=== PATIENT | male | born 1970 | race African-American/Black ===

== ENCOUNTER 2016-06-27 07:15 | Emergency (ER) | payer MEDICAID, OTHER ==
[~2016-06-27] VITALS: Ht 195.6 cm; Wt 89.8 kg
[2016-06-27 07:55] LABS: BASOPHILS % (AUTO) 0.8 % (0.0-2.0); DIFF TOTAL % 100 %; EOSINOPHILS # (AUTO) 0.1 /CMM (0.0-0.7); HEMATOCRIT 38 % (39-51); HEMOGLOBIN 12.8 g/dL (13.5-17.5); LYMPHOCYTES # (AUTO) 1.2 /CMM (0.8-4.8); MEAN CORPUSCULAR HEMOGLOBIN 32 PG (26.0-33.0); MEAN CORPUSCULAR HGB CONC 34 g/dl (31.0-36.0); MEAN CORPUSCULAR VOLUME 96 fL (80-96); MONOCYTES # (AUTO) 0.5 /CMM (0.1-1.30); MONOCYTES % (AUTO) 8.8 % (2.0-12.0); NEUTROPHILS # (AUTO) 3.4 /CMM (1.8-8.9); NEUTROPHILS % (AUTO) 65.4 % (43.0-81.0); PLATELET COUNT (AUTO) 227 /CMM (150-450); RED BLOOD CELL COUNT(AUTO) 3.98 MIL/uL (4.5-6.0); WHITE BLOOD COUNT (AUTO) 5.2 K/uL (4.3-11.0)
[2016-06-27 08:01] LABS: ADD UA MICROSCOPIC NO; KETONES,URINE NEGATIVE (NEGATIVE); LEUKOCYTE ESTERASE ,URINE NEGATIVE (NEGATIVE)
[2016-06-27 08:08] LABS: ANION GAP 13 (5-14); CALCIUM, SERUM 9.1 mg/dL (8.5-10.1); CARBON DIOXIDE 27 mmol/L (21-32); CHLORIDE 107 mmol/L (98-107); CREATININE 0.9 mg/dL (0.6-1.3); GFR 110 mL/min (>60); GLUCOSE 81 mg/dL (74-106); SODIUM SERUM 143 mmol/L (136-145); UREA NITROGEN, BLOOD 12 mg/dL (7-18)
[2016-06-27 08:15] LABS: ALANINE AMINOTRANSFERASE 37 U/L (12-78); ALBUMIN 4.2 g/dL (3.4-5.0); ASPARTATE AMINOTRANSFERASE 26 U/L (15-37); BILIRUBIN,DIRECT 0.1 mg/dL (0.0-0.2); BILIRUBIN,TOTAL 0.6 mg/dL (0.2-1.0); INDIRECT BILIRUBIN 0.5 mg/dL (0.0-1.1); TOTAL PROTEIN, SERUM 7.8 g/dL (6.4-8.2)
[2016-06-27 08:16] LABS: ACETAMINOPHEN 0 ug/ml (10-30)
[2016-06-27 08:24] LABS: CANNABINOID, URINE POSITIVE (NEGATIVE); PHENCYCLIDINE SCREEN,URINE NEGATIVE (NEGATIVE)
[2016-06-27 10:12] VITALS: BP 132/84
== END 2016-06-27 10:13 | disposition home or self-care (01) ==
LOC: ER 07:19
DX: R45.851 Suicidal ideations (principal); D64.9 Anemia, unspecified; F32.9 Major depressive disorder, single episode, unspecified; F17.200 Nicotine dependence, unspecified, uncomplicated
CPT/HCPCS: 36415; 80048; 80076; 80305; 81001; 85025; 99284; A4606; G0480 ×2; Z7610; 81000-TC; G6039-TC

== ENCOUNTER 2017-08-25 07:27 | Emergency (ER) | payer OTHER ==
[~2017-08-25] VITALS: Ht 195.6 cm; Wt 90.7 kg
[2017-08-25 07:30] VITALS: BP 148/84
--- NOTE | 2017-08-25 07:32 | NUR ---
AAOX3 BBRA FROM STREET FOR MEDICAL CLEARANCE. RR IS EVEN AND UNLABORED WITH NAD NOTED. SKIN IS WARM AND DRY. DR ARMAS AT BS FOR EVAL.
[2017-08-25 08:09] LABS: BASOPHILS % (AUTO) 0.8 % (0.0-2.0); EOSINOPHILS % (AUTO) 0.9 % (0.0-6.0); HEMATOCRIT 36 % (39-51); HEMOGLOBIN 12.2 g/dL (13.5-17.5); LYMPHOCYTES % (AUTO) 22.9 % (20.0-44.0); MEAN CORPUSCULAR HGB CONC 34 g/dl (31.0-36.0); MEAN CORPUSCULAR VOLUME 92 fL (80-96); MONOCYTES # (AUTO) 0.4 /CMM (0.1-1.30); MONOCYTES % (AUTO) 8.5 % (2.0-12.0); NEUTROPHILS # (AUTO) 2.8 /CMM (1.8-8.9); NEUTROPHILS % (AUTO) 66.9 % (43.0-81.0); PLATELET COUNT (AUTO) 303 /CMM (150-450); RDW COEFFICIENT OF VARIATION 14.8 (11.5-15.0); RED BLOOD CELL COUNT(AUTO) 3.91 MIL/uL (4.5-6.0); WHITE BLOOD COUNT (AUTO) 4.2 K/uL (4.3-11.0)
--- NOTE | 2017-08-25 08:15 | NUR ---
Patient eloped from facility. ER MD notified.
[2017-08-25 08:22] LABS: CALCIUM, SERUM 9.3 mg/dL (8.5-10.1); CARBON DIOXIDE 28 mmol/L (21-32); CHLORIDE 102 mmol/L (98-107); GLUCOSE 99 mg/dL (74-106); POTASSIUM 3.7 mmol/L (3.5-5.1); SODIUM SERUM 140 mmol/L (136-145); UREA NITROGEN, BLOOD 11 mg/dL (7-18)
[2017-08-25 08:29] LABS: ALANINE AMINOTRANSFERASE 28 U/L (12-78); ALBUMIN 3.7 g/dL (3.4-5.0); ALCOHOL, BLOOD < 3 mg/dL (0-0); ALKALINE PHOSPHATASE 54 U/L (46-116); ASPARTATE AMINOTRANSFERASE 20 U/L (15-37); BILIRUBIN,DIRECT 0.1 mg/dL (0.0-0.2); BILIRUBIN,TOTAL 0.2 mg/dL (0.2-1.0); TOTAL PROTEIN, SERUM 7.6 g/dL (6.4-8.2)
[2017-08-25 08:30] LABS: ACETAMINOPHEN 0 ug/ml (10-30); SALICYLATE 1.3 mg/dL (2.8-20.0)
== END 2017-08-25 08:15 | disposition left against medical advice (07) ==
LOC: ER 07:29
DX: F32.9 Major depressive disorder, single episode, unspecified (principal); F17.200 Nicotine dependence, unspecified, uncomplicated
CPT/HCPCS: 36415; 80048-TC; 80076-TC; 85025-TC; A4606; G0480; Z7610

== ENCOUNTER 2018-01-17 10:39 | Emergency (ER) | payer MEDICAID, OTHER ==
[~2018-01-17] VITALS: Ht 195.6 cm; Wt 87.1 kg
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
--- NOTE | 2018-01-17 10:49 | NUR ---
DR BALLARD AT BEDSIDE FOR EVAL.
--- NOTE | 2018-01-17 10:59 | NUR ---
POULTRY PROCESSING SUPERVISOR AT BEDSIDE FOR BLOOD DRAW. URINE SPECIMEN COLLECTED SENT TO LAB.
[2018-01-17 11:09] LABS: APPEARANCE,URINE Clear (CLEAR); BILIRUBIN,URINE Negative (NEGATIVE); BLOOD, URINE Negative Ery/uL (NEGATIVE); COLOR,URINE Yellow (YELLOW); KETONES,URINE Negative (NEGATIVE); LEUKOCYTE ESTERASE ,URINE Negative (NEGATIVE); NITRITE, URINE Negative (NEGATIVE); PH,URINE 5.5 (5.0-8.0); PROTEIN,URINE Negative (NEGATIVE); UGLUCOSE Negative (NEGATIVE); UROBILINOGEN,URINE 0.2 EU/dL (0.2)
[2018-01-17 11:10] LABS: BASOPHILS % (AUTO) 0.5 % (0.0-2.0); EOSINOPHILS % (AUTO) 0.9 % (0.0-6.0); HEMATOCRIT 42 % (39-51); HEMOGLOBIN 13.9 g/dL (13.5-17.5); LYMPHOCYTES # (AUTO) 1.6 /CMM (0.8-4.8); LYMPHOCYTES % (AUTO) 34.2 % (20.0-44.0); MEAN CORPUSCULAR HGB CONC 33 g/dl (31.0-36.0); MEAN CORPUSCULAR VOLUME 93 fL (80-96); MONOCYTES # (AUTO) 0.5 /CMM (0.1-1.30); MONOCYTES % (AUTO) 10.7 % (2.0-12.0); NEUTROPHILS # (AUTO) 2.5 /CMM (1.8-8.9); NEUTROPHILS % (AUTO) 53.7 % (43.0-81.0); PLATELET COUNT (AUTO) 294 /CMM (150-450); RDW COEFFICIENT OF VARIATION 13.3 (11.5-15.0); RED BLOOD CELL COUNT(AUTO) 4.51 MIL/uL (4.5-6.0); WHITE BLOOD COUNT (AUTO) 4.6 K/uL (4.3-11.0)
[2018-01-17 11:20] LABS: CALCIUM, SERUM 9.2 mg/dL (8.5-10.1); CARBON DIOXIDE 32 mmol/L (21-32); CHLORIDE 102 mmol/L (98-107); GLUCOSE 77 mg/dL (74-106); POTASSIUM 3.6 mmol/L (3.5-5.1); SODIUM SERUM 138 mmol/L (136-145); UREA NITROGEN, BLOOD 14 mg/dL (7-18)
[2018-01-17 11:25] LABS: ALANINE AMINOTRANSFERASE 23 U/L (12-78); ALBUMIN 4.3 g/dL (3.4-5.0); ALKALINE PHOSPHATASE 69 U/L (46-116); ASPARTATE AMINOTRANSFERASE 29 U/L (15-37); BILIRUBIN,DIRECT 0.2 mg/dL (0.0-0.2)
[2018-01-17 11:27] LABS: ACETAMINOPHEN < 2 ug/ml (10-30); ALCOHOL, BLOOD < 3 mg/dL (0-0); SALICYLATE 1.5 mg/dL (2.8-20.0)
--- NOTE | 2018-01-17 12:05 | NUR ---
FOOD TRAY ORDERED
[2018-01-17] MEDS ORDERED: OLANZAPINE 10 MG VIAL IM ONE (13:30)
[2018-01-17] MEDS ORDERED: HALOPERIDOL 5 MG TABLET ONE (13:38)
[2018-01-17] MEDS ORDERED: HALOPERIDOL 1 MG TABLET PO ONE (14:00)
--- NOTE | 2018-01-17 17:31 | NUR ---
PT STATES FEELING MUCH BETTER AFTER PO HALDOL. NOW DENIES SI. NOT ON A [address] JONES MADE AWARE OF PT'S PLAN AND STATES GOOD TO GO IF HE WISHES TO. PT AMBULATORY W/ STEADY GAIT. D/C HOME IN STABLE CONDITION.
[2018-01-17 17:35] VITALS: BP 121/82
== END 2018-01-17 17:36 | disposition home or self-care (01) ==
LOC: ER 10:40
DX: R45.851 Suicidal ideations (principal); F32.9 Major depressive disorder, single episode, unspecified; F10.10 Alcohol abuse, uncomplicated; F17.200 Nicotine dependence, unspecified, uncomplicated; F15.10 Other stimulant abuse, uncomplicated; Y90.0 Blood alcohol level of less than 20 mg/100 ml
CPT/HCPCS: 36415; 80048; 80076; 80305; 80329; 81001; 85025; 99291; A4606; G0480 ×2; J7030; Z7610; 81000-TC

== ENCOUNTER 2018-12-05 23:49 | Emergency (ER) | payer MEDICAID, OTHER ==
[~2018-12-05] VITALS: Ht 195.6 cm; Wt 83.9 kg
[2018-12-06] MEDS ORDERED: KETOROLAC TROMETHAMINE INJ 60 MG/2 ML VIAL IM ONE
[2018-12-06] MEDS ORDERED: KETOROLAC TROMETHAMINE INJ 30 MG/ML VIAL ONE (00:06)
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
[2018-12-06] MEDS ORDERED: IBUPROFEN 600 MG TABLET PO ONE ×2 (00:17→00:30)
[2018-12-06 00:29] LABS: APPEARANCE,URINE Clear (CLEAR); BILIRUBIN,URINE Negative (NEGATIVE); BLOOD, URINE Negative Ery/uL (NEGATIVE); COLOR,URINE Yellow (YELLOW); KETONES,URINE Negative (NEGATIVE); LEUKOCYTE ESTERASE ,URINE Negative (NEGATIVE); NITRITE, URINE Negative (NEGATIVE); PROTEIN,URINE Negative (NEGATIVE); UGLUCOSE Negative (NEGATIVE)
--- NOTE | 2018-12-06 00:34 | NUR ---
BLOOD DRAWN AND URINE SENT TO LAB
[2018-12-06 00:35] LABS: BASOPHILS % (AUTO) 0.6 % (0.0-2.0); EOSINOPHILS % (AUTO) 1.1 % (0.0-6.0); HEMATOCRIT 41 % (39-51); HEMOGLOBIN 13.9 g/dL (13.5-17.5); LYMPHOCYTES # (AUTO) 1.5 /CMM (0.8-4.8); LYMPHOCYTES % (AUTO) 36.2 % (20.0-44.0); MEAN CORPUSCULAR HGB CONC 34 g/dl (31.0-36.0); MEAN CORPUSCULAR VOLUME 95 fL (80-96); MONOCYTES # (AUTO) 0.6 /CMM (0.1-1.30); MONOCYTES % (AUTO) 14.9 % (2.0-12.0); NEUTROPHILS % (AUTO) 47.2 % (43.0-81.0); PLATELET COUNT (AUTO) 266 /CMM (150-450); RED BLOOD CELL COUNT(AUTO) 4.26 MIL/uL (4.5-6.0); WHITE BLOOD COUNT (AUTO) 4.2 K/uL (4.3-11.0)
[2018-12-06 00:44] LABS: CALCIUM, SERUM 8.7 mg/dL (8.5-10.1); CARBON DIOXIDE 28 mmol/L (21-32); CHLORIDE 101 mmol/L (98-107); GLUCOSE 95 mg/dL (74-106); POTASSIUM 4.2 mmol/L (3.5-5.1); SODIUM SERUM 139 mmol/L (136-145); UREA NITROGEN, BLOOD 18 mg/dL (7-18)
[2018-12-06 00:50] LABS: ALANINE AMINOTRANSFERASE 27 U/L (12-78); ALCOHOL, BLOOD < 3 mg/dL (0-0); ALKALINE PHOSPHATASE 63 U/L (46-116); ASPARTATE AMINOTRANSFERASE 37 U/L (15-37); BILIRUBIN,DIRECT 0.2 mg/dL (0.0-0.2); BILIRUBIN,TOTAL 0.7 mg/dL (0.2-1.0); TOTAL PROTEIN, SERUM 7.5 g/dL (6.4-8.2)
[2018-12-06 00:54] LABS: BACTERIA,URINE Few /HPF (None Seen)
[2018-12-06 00:55] LABS: SALICYLATE 0.7 mg/dL (2.8-20.0)
[2018-12-06 00:55] LABS: SQUAMOUS EPITHELIAL CELL,UR Few /HPF (None Seen)
[2018-12-06 00:56] LABS: ACETAMINOPHEN 0 ug/ml (10-30)
--- NOTE | 2018-12-06 01:12 | NUR ---
PER INTAKE AT [facility], NO BED AVAILABLE AT ALL LOCATIONS UNTIL MORNING
--- NOTE | 2018-12-06 01:14 | NUR ---
PT PROVIDED WITH FOOD
--- NOTE | 2018-12-06 04:36 | NUR ---
PT IN BED SLEEPING. NAD NOTED.
--- NOTE | 2018-12-06 06:08 | NUR ---
PER INTAKE AT [facility], NO BED AVAILABLE UNTIL AFTER 0800. WILL FAX OVER CLINICALS PENDING ADMISSION
--- NOTE | 2018-12-06 07:13 | NUR ---
PT ENDORSED TO [facility] PEREZ FOR POOL. PT IN BED SLEEPING
--- NOTE | 2018-12-06 07:20 | NUR ---
RECVD REPORT FROM [facility]. PATIENT REMAINS STABLE VSS ARE WNL, NO DISTRESS NOTED.
--- NOTE | 2018-12-06 07:40 | NUR ---
BREAKFAST PROVIDED FOR PATIENT
--- NOTE | 2018-12-06 11:34 | NUR ---
[facility] ETA 1235 CONFIRMATION #[id number]
--- NOTE | 2018-12-06 12:30 | NUR ---
[facility] AT [facility] TO TAKE PATIENT TO OUTSIDE FACILITY FOR POOL JASMIN LANDERS
[2018-12-06 12:38] VITALS: BP 105/66
--- NOTE | 2018-12-06 12:38 | NUR ---
Patient discharged to home in stable condition. Written and verbal after care instructions given. Patient verbalizes understanding of instruction.
== END 2018-12-06 12:39 ==
LOC: ER 23:53
DX: R45.851 Suicidal ideations (principal); M25.512 Pain in left shoulder; F17.200 Nicotine dependence, unspecified, uncomplicated; V19.88XA Pedal cyclist (driver) (passenger) injured in other specified transport accidents, initial encounter; Y93.89 Activity, other specified; Y92.89 Other specified places as the place of occurrence of the external cause; Y99.8 Other external cause status
CPT/HCPCS: 36415; 73030; 80048; 80076; 80305; 80307; 80329; 81001; 85025; 87086; 99285; G0480; 81000-TC; J1885

== ENCOUNTER 2018-12-26 00:58 | Emergency (ER) | payer OTHER ==
[~2018-12-26] VITALS: Ht 195.6 cm; Wt 75.3 kg
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
--- NOTE | 2018-12-26 01:20 | NUR ---
Pt sleeping in rmarvin. No immediate signs of distress noted. Pt vital signs stable. WIll cont to monitor pt.
[2018-12-26 01:29] LABS: BASOPHILS # (AUTO) 0.2 /CMM (0.0-0.2); BASOPHILS % (AUTO) 3.8 % (0.0-2.0); HEMATOCRIT 39 % (39-51); HEMOGLOBIN 13.2 g/dL (13.5-17.5); LYMPHOCYTES # (AUTO) 1.4 /CMM (0.8-4.8); LYMPHOCYTES % (AUTO) 32.1 % (20.0-44.0); MEAN CORPUSCULAR HGB CONC 34 g/dl (31.0-36.0); MEAN CORPUSCULAR VOLUME 96 fL (80-96); MONOCYTES # (AUTO) 0.5 /CMM (0.1-1.30); MONOCYTES % (AUTO) 11.4 % (2.0-12.0); NEUTROPHILS # (AUTO) 2.2 /CMM (1.8-8.9); NEUTROPHILS % (AUTO) 49.7 % (43.0-81.0); PLATELET COUNT (AUTO) 259 /CMM (150-450); RED BLOOD CELL COUNT(AUTO) 4.04 MIL/uL (4.5-6.0); WHITE BLOOD COUNT (AUTO) 4.4 K/uL (4.3-11.0)
[2018-12-26 01:31] LABS: APPEARANCE,URINE Clear (CLEAR); BILIRUBIN,URINE Negative (NEGATIVE); BLOOD, URINE Negative Ery/uL (NEGATIVE); COLOR,URINE Yellow (YELLOW); KETONES,URINE Negative (NEGATIVE); LEUKOCYTE ESTERASE ,URINE Negative (NEGATIVE); NITRITE, URINE Negative (NEGATIVE); PH,URINE 5.5 (5.0-8.0); PROTEIN,URINE Negative (NEGATIVE); UGLUCOSE Negative (NEGATIVE); UROBILINOGEN,URINE 0.2 EU/dL (0.2)
[2018-12-26 01:40] LABS: CALCIUM, SERUM 8.7 mg/dL (8.5-10.1); CARBON DIOXIDE 28 mmol/L (21-32); CHLORIDE 101 mmol/L (98-107); CREATININE 1.1 mg/dL (0.6-1.3); GLUCOSE 97 mg/dL (74-106); POTASSIUM 3.8 mmol/L (3.5-5.1); SODIUM SERUM 138 mmol/L (136-145); UREA NITROGEN, BLOOD 18 mg/dL (7-18)
[2018-12-26 01:47] LABS: ALANINE AMINOTRANSFERASE 20 U/L (12-78); ALCOHOL, BLOOD < 3 mg/dL (0-0); ALKALINE PHOSPHATASE 57 U/L (46-116); ASPARTATE AMINOTRANSFERASE 32 U/L (15-37); BILIRUBIN,DIRECT 0.2 mg/dL (0.0-0.2); BILIRUBIN,TOTAL 0.5 mg/dL (0.2-1.0); TOTAL PROTEIN, SERUM 7.4 g/dL (6.4-8.2)
[2018-12-26 01:57] LABS: ACETAMINOPHEN 0 ug/ml (10-30); SALICYLATE 1.5 mg/dL (2.8-20.0)
--- NOTE | 2018-12-26 08:44 | NUR ---
MEDICAL DOCTOR NOTIFIED, ETA 1 HOUR.
--- NOTE | 2018-12-26 09:52 | NUR ---
PT AWAKE ON BED, FOOD TRAY PROVIDED, V/S STABLE, KEPT RESTED AND COMFORTABLE, WILL CONTINUE TO MONITOR.
--- NOTE | 2018-12-26 12:17 | NUR ---
TRANSFER INFO: PT WILL GO TO [facility], ACCEPTED BY DR SHAH, RN FOR REPORT [phone] EXT [phone], AMBULANCE ETA TO FOLLOW
--- NOTE | 2018-12-26 12:38 | NUR ---
[facility] ETA 1345 HOURS CONFIRMATION #[id number]
--- NOTE | 2018-12-26 12:41 | NUR ---
PLACED CALL TO [facility] ([phone]) AND GAVE REPORT TO LEON VALVERDE
--- NOTE | 2018-12-26 12:56 | NUR ---
FOOD TRAY PROVIDED
--- NOTE | 2018-12-26 14:17 | NUR ---
[facility] UPDATED ETA 1513
--- NOTE | 2018-12-26 15:39 | NUR ---
[id number], [facility] UPDATED ETA 1615
[2018-12-26 16:54] VITALS: BP 132/75
--- NOTE | 2018-12-26 17:58 | NUR ---
PATIENT TO TRANSFER TO [facility]. TRANSFER INFORMATION AND EDUCATION PROVIDED TO PATIENT AND VERBALIZED UNDERSTANDING. PATIENT LEFT UNIT VIA AMBULANCE TRANSPORTATION IN STABLE CONDITION. NO ACUTE DISTRESS. NO C/O PAIN OR DISCOMFORT. NO IV ON PATIENT. NO REPORT OF MISSING INVENTORY. NO NEW SKIN BREAKDOWN NOTED ON DISCHARGE. MD AWARE
== END 2018-12-26 18:05 ==
LOC: ER 01:01
DX: R45.851 Suicidal ideations (principal); F17.200 Nicotine dependence, unspecified, uncomplicated
CPT/HCPCS: 36415; 80048; 80076; 80305; 80307; 80329; 81001; 85025; 99285; G0480; 81000-TC

== ENCOUNTER 2019-05-22 00:32 | Emergency (ER) | payer OTHER ==
[~2019-05-22] VITALS: Ht 198.1 cm; Wt 83.9 kg
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
[2019-05-22 01:48] LABS: BASOPHILS # (AUTO) 0.1 /CMM (0.0-0.2); BASOPHILS % (AUTO) 0.6 % (0.0-2.0); EOSINOPHILS % (AUTO) 0.3 % (0.0-6.0); HEMATOCRIT 35 % (39-51); HEMOGLOBIN 11.6 g/dL (13.5-17.5); LYMPHOCYTES # (AUTO) 0.6 /CMM (0.8-4.8); LYMPHOCYTES % (AUTO) 7.1 % (20.0-44.0); MEAN CORPUSCULAR HGB CONC 34 g/dl (31.0-36.0); MEAN CORPUSCULAR VOLUME 97 fL (80-96); MONOCYTES # (AUTO) 0.5 /CMM (0.1-1.30); MONOCYTES % (AUTO) 5.5 % (2.0-12.0); NEUTROPHILS # (AUTO) 7.8 /CMM (1.8-8.9); NEUTROPHILS % (AUTO) 86.5 % (43.0-81.0); PLATELET COUNT (AUTO) 255 /CMM (150-450); RED BLOOD CELL COUNT(AUTO) 3.56 MIL/uL (4.5-6.0)
[2019-05-22 01:51] LABS: APPEARANCE,URINE Clear (CLEAR); BILIRUBIN,URINE Negative (NEGATIVE); BLOOD, URINE Negative Ery/uL (NEGATIVE); COLOR,URINE Yellow (YELLOW); KETONES,URINE Negative (NEGATIVE); LEUKOCYTE ESTERASE ,URINE Negative (NEGATIVE); NITRITE, URINE Negative (NEGATIVE); PROTEIN,URINE 30 mg/dl (NEGATIVE); UGLUCOSE Negative (NEGATIVE)
--- NOTE | 2019-05-22 01:51 | NUR ---
XRAY AT BEDSIDE
[2019-05-22 01:55] LABS: CALCIUM, SERUM 8.6 mg/dL (8.5-10.1); CARBON DIOXIDE 29 mmol/L (21-32); CHLORIDE 102 mmol/L (98-107); CREATININE 0.9 mg/dL (0.6-1.3); GLUCOSE 99 mg/dL (74-106); POTASSIUM 4.6 mmol/L (3.5-5.1); SODIUM SERUM 134 mmol/L (136-145); UREA NITROGEN, BLOOD 12 mg/dL (7-18)
[2019-05-22 02:01] LABS: ACETAMINOPHEN 0 ug/ml (10-30); ALANINE AMINOTRANSFERASE 28 U/L (12-78); ALBUMIN 3.5 g/dL (3.4-5.0); ALCOHOL, BLOOD < 3 mg/dL (0-0); ALKALINE PHOSPHATASE 72 U/L (46-116); ASPARTATE AMINOTRANSFERASE 43 U/L (15-37); BILIRUBIN,DIRECT 0.1 mg/dL (0.0-0.2); BILIRUBIN,TOTAL 0.5 mg/dL (0.2-1.0); SALICYLATE 1.2 mg/dL (2.8-20.0)
[2019-05-22 02:20] LABS: BACTERIA,URINE None seen /HPF (None Seen); MUCUS,URINE Moderate /LPF (None Seen); RBC,URINE 0-2 /HPF (0-2); SPERM,URINE Many /HPF (None Seen); SQUAMOUS EPITHELIAL CELL,UR Few /HPF (None Seen); WBC,URINE 0-2 /HPF (0-3)
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
--- NOTE | 2019-05-22 05:41 | NUR ---
PT STILL STATING HE IS SUICIDAL. CALLED MORALES JACOBS FOR EVALUATION
--- NOTE | 2019-05-22 08:03 | NUR ---
REYNALDO NIELSEN AT BEDSIDE FOR EVAL.
--- NOTE | 2019-05-22 09:12 | NUR ---
Patient discharged to home in stable condition. Written and verbal after care instructions given. Patient verbalizes understanding of instruction.
[2019-05-22 09:13] VITALS: BP 122/77
== END 2019-05-22 09:14 | disposition home or self-care (01) ==
LOC: ER 00:34
DX: R45.851 Suicidal ideations (principal); M25.561 Pain in right knee; F32.9 Major depressive disorder, single episode, unspecified; F17.200 Nicotine dependence, unspecified, uncomplicated; Z59.0 Homelessness
CPT/HCPCS: 29505; 36415; 73564; 80048; 80076; 80305; 80307; 80329; 81001; 85025; 85652; 86140; 99284; G0480; 81000-TC

== ENCOUNTER 2019-09-02 03:17 | Emergency (ER) | payer OTHER ==
[~2019-09-02] VITALS: Ht 198.1 cm; Wt 84.8 kg
[2019-09-02 04:52] LABS: APPEARANCE,URINE Clear (CLEAR); BILIRUBIN,URINE Negative (NEGATIVE); BLOOD, URINE Negative Ery/uL (NEGATIVE); COLOR,URINE Yellow (YELLOW); KETONES,URINE Negative (NEGATIVE); LEUKOCYTE ESTERASE ,URINE Negative (NEGATIVE); NITRITE, URINE Negative (NEGATIVE); PROTEIN,URINE Negative (NEGATIVE); UGLUCOSE Negative (NEGATIVE); UROBILINOGEN,URINE 0.2 EU/dL (0.2)
[2019-09-02 05:00] LABS: BASOPHILS # (AUTO) 0.1 /CMM (0.0-0.2); BASOPHILS % (AUTO) 1.3 % (0.0-2.0); EOSINOPHILS % (AUTO) 1.5 % (0.0-6.0); HEMATOCRIT 36 % (39-51); HEMOGLOBIN 12.2 g/dL (13.5-17.5); LYMPHOCYTES # (AUTO) 2.1 /CMM (0.8-4.8); MEAN CORPUSCULAR HGB CONC 34 g/dl (31.0-36.0); MEAN CORPUSCULAR VOLUME 94 fL (80-96); MONOCYTES # (AUTO) 0.5 /CMM (0.1-1.30); MONOCYTES % (AUTO) 9.2 % (2.0-12.0); NEUTROPHILS # (AUTO) 2.8 /CMM (1.8-8.9); PLATELET COUNT (AUTO) 291 /CMM (150-450); WHITE BLOOD COUNT (AUTO) 5.6 K/uL (4.3-11.0)
[2019-09-02 05:15] LABS: CARBON DIOXIDE 31 mmol/L (21-32); CHLORIDE 103 mmol/L (98-107); GLUCOSE 87 mg/dL (74-106); POTASSIUM 4.5 mmol/L (3.5-5.1); SODIUM SERUM 140 mmol/L (136-145); UREA NITROGEN, BLOOD 13 mg/dL (7-18)
[2019-09-02 05:29] LABS: ALANINE AMINOTRANSFERASE 27 U/L (12-78); ALBUMIN 3.8 g/dL (3.4-5.0); ALKALINE PHOSPHATASE 54 U/L (46-116); ASPARTATE AMINOTRANSFERASE 23 U/L (15-37); BILIRUBIN,DIRECT 0.1 mg/dL (0.0-0.2); BILIRUBIN,TOTAL 0.2 mg/dL (0.2-1.0); SALICYLATE 3.1 mg/dL (2.8-20.0); TOTAL PROTEIN, SERUM 7.7 g/dL (6.4-8.2)
[2019-09-02 05:32] LABS: ACETAMINOPHEN 0 ug/ml (10-30); ALCOHOL, BLOOD < 3 mg/dL (0-0)
[2019-09-02] MEDS ORDERED: QUETIAPINE FUMARATE 25 MG TABLET ONE (12:33)
[2019-09-02] MEDS: HALOPERIDOL 1 MG TABLET PO ONE (12:45)
[2019-09-02] MEDS: QUETIAPINE FUMARATE 25 MG TABLET PO SCH (12:46)
[2019-09-02 13:06] VITALS: BP 122/71
== END 2019-09-02 14:36 ==
LOC: ER 03:17
DX: R45.851 Suicidal ideations (principal); F15.10 Other stimulant abuse, uncomplicated; F32.9 Major depressive disorder, single episode, unspecified; Z59.0 Homelessness
CPT/HCPCS: 36415; 80048; 80076; 80305; 80307; 80329; 81001; 85025; 99285; G0480; 81000-TC

== ENCOUNTER 2019-11-08 02:48 | Emergency (ER) | payer OTHER ==
[~2019-11-08] VITALS: Ht 195.6 cm; Wt 77.6 kg
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
--- NOTE | 2019-11-08 02:56 | NUR ---
BICYCLE COURIER AT BEDSIDE FOR BLOOD DRAW
--- NOTE | 2019-11-08 03:03 | NUR ---
URINE COLLECTED AND SENT TO THE LAB.
[2019-11-08 03:40] LABS: BASOPHILS # (AUTO) 0.1 /CMM (0.0-0.2); BASOPHILS % (AUTO) 0.9 % (0.0-2.0); EOSINOPHILS % (AUTO) 0.2 % (0.0-6.0); HEMATOCRIT 38 % (39-51); HEMOGLOBIN 12.7 g/dL (13.5-17.5); LYMPHOCYTES # (AUTO) 1.6 /CMM (0.8-4.8); LYMPHOCYTES % (AUTO) 23.6 % (20.0-44.0); MEAN CORPUSCULAR HGB CONC 34 g/dl (31.0-36.0); MEAN CORPUSCULAR VOLUME 95 fL (80-96); MONOCYTES # (AUTO) 0.6 /CMM (0.1-1.30); MONOCYTES % (AUTO) 9.6 % (2.0-12.0); NEUTROPHILS # (AUTO) 4.4 /CMM (1.8-8.9); NEUTROPHILS % (AUTO) 65.7 % (43.0-81.0); PLATELET COUNT (AUTO) 361 /CMM (150-450); RED BLOOD CELL COUNT(AUTO) 3.96 MIL/uL (4.5-6.0); WHITE BLOOD COUNT (AUTO) 6.7 K/uL (4.3-11.0)
[2019-11-08 03:43] LABS: ALANINE AMINOTRANSFERASE 30 U/L (12-78); ALBUMIN 4.1 g/dL (3.4-5.0); ALKALINE PHOSPHATASE 58 U/L (46-116); ASPARTATE AMINOTRANSFERASE 24 U/L (15-37); BILIRUBIN,DIRECT 0.1 mg/dL (0.0-0.2); BILIRUBIN,TOTAL 0.2 mg/dL (0.2-1.0); CALCIUM, SERUM 9.6 mg/dL (8.5-10.1); CARBON DIOXIDE 33 mmol/L (21-32); CHLORIDE 101 mmol/L (98-107); CREATININE 1.1 mg/dL (0.6-1.3); GLUCOSE 91 mg/dL (74-106); POTASSIUM 3.6 mmol/L (3.5-5.1); SODIUM SERUM 140 mmol/L (136-145); TOTAL PROTEIN, SERUM 8.4 g/dL (6.4-8.2); UREA NITROGEN, BLOOD 15 mg/dL (7-18)
[2019-11-08 03:45] LABS: APPEARANCE,URINE Clear (CLEAR); BILIRUBIN,URINE Negative (NEGATIVE); BLOOD, URINE Negative Ery/uL (NEGATIVE); COLOR,URINE Yellow (YELLOW); KETONES,URINE Negative (NEGATIVE); LEUKOCYTE ESTERASE ,URINE Negative (NEGATIVE); NITRITE, URINE Negative (NEGATIVE); PH,URINE 6.5 (5.0-8.0); PROTEIN,URINE Negative (NEGATIVE); UGLUCOSE Negative (NEGATIVE); UROBILINOGEN,URINE 0.2 EU/dL (0.2)
[2019-11-08 03:47] LABS: ACETAMINOPHEN < 2 ug/ml (10-30); ALCOHOL, BLOOD < 3 mg/dL (0-0)
[2019-11-08] MEDS ORDERED: OLANZAPINE 5 MG TABLET ONE (05:28)
[2019-11-08] MEDS ORDERED: OLANZAPINE 5 MG TABLET PO ONE (05:30)
--- NOTE | 2019-11-08 06:19 | NUR ---
PER ELIAS FROM [facility] , PT IS ON THE DO NOT ADMIT LIST FOR ALL FACILITIES UNDER THEM.
[2019-11-08] MEDS ORDERED: IV NS 0.9% 1,000 ML IV ONE (06:30)
[2019-11-08] MEDS ORDERED: LORAZEPAM 1 MG TABLET PO ONE (10:30)
[2019-11-08] MEDS ORDERED: LORAZEPAM 1 MG TABLET ONE (10:31)
--- NOTE | 2019-11-08 10:44 | NUR ---
CALLED [facility] [phone] WILL BE HERE IN 60 MINS AND REQUESTED FOR ROBERT TO CONTACT HER ALSO.
--- NOTE | 2019-11-08 10:56 | NUR ---
PARALEGAL SUPERVISOR contacted dispatcher refinery Sherry and confirmed with her that she will need to come to [facility] to evaluate the pt since pt. intentionally overdosed on his medications.
--- NOTE | 2019-11-08 13:03 | NUR ---
Patient discharged to home in stable condition. Written and verbal after care instructions given. Patient verbalizes understanding of instruction. Pt ambulatory with a steady gait. Homeless waiver signed by the pt. Provided with TAP card. Pt refused food
[2019-11-08 13:04] VITALS: BP 132/72
== END 2019-11-08 13:06 | disposition home or self-care (01) ==
LOC: ER 02:49
DX: R45.851 Suicidal ideations (principal); F32.9 Major depressive disorder, single episode, unspecified; R94.31 Abnormal electrocardiogram [ECG] [EKG]; Z59.0 Homelessness
CPT/HCPCS: 36415; 80048; 80076; 80305; 80307; 80329; 81001; 85025; 93005; 99284; G0480; J7030; 81000-TC

== ENCOUNTER 2020-07-10 15:12 | Emergency (ER) | payer OTHER ==
[~2020-07-10] VITALS: Ht 195.6 cm; Wt 79.8 kg
--- NOTE | 2020-07-10 15:12 | NUR ---
PT BIB RA AND [employer] OFFICERS FROM [employer],SUICIDAL IDEATION,PLAN TO OFF A BRIDGE. PT IS AAOX4, NOT IN RESPIRATORY DISTRESS, V/S STABLE, KEPT RESTED AND COMFORTABLE. SITTER AT BEDSIDE.
--- NOTE | 2020-07-10 16:34 | NUR ---
SEEN AND EXAMINED BY .
--- NOTE | 2020-07-10 16:42 | NUR ---
ER PHLEB AT BEDSIDE FOR BLOOD DRAW.
[2020-07-10 16:54] LABS: BASOPHILS # (AUTO) 0.1 /CMM (0.0-0.2); BASOPHILS % (AUTO) 1.2 % (0.0-2.0); EOSINOPHILS % (AUTO) 0.2 % (0.0-6.0); HEMATOCRIT 43 % (39-51); HEMOGLOBIN 14.2 g/dL (13.5-17.5); LYMPHOCYTES % (AUTO) 30.2 % (20.0-44.0); MEAN CORPUSCULAR HGB CONC 33 g/dl (31.0-36.0); MEAN CORPUSCULAR VOLUME 96 fL (80-96); MONOCYTES # (AUTO) 0.7 /CMM (0.1-1.30); MONOCYTES % (AUTO) 11.1 % (2.0-12.0); NEUTROPHILS # (AUTO) 3.8 /CMM (1.8-8.9); NEUTROPHILS % (AUTO) 57.3 % (43.0-81.0); PLATELET COUNT (AUTO) 261 /CMM (150-450); RED BLOOD CELL COUNT(AUTO) 4.54 MIL/uL (4.5-6.0); WHITE BLOOD COUNT (AUTO) 6.6 K/uL (4.3-11.0)
[2020-07-10 17:08] LABS: CALCIUM, SERUM 9.6 mg/dL (8.5-10.1); CARBON DIOXIDE 26 mmol/L (21-32); CHLORIDE 102 mmol/L (98-107); CREATININE 1.1 mg/dL (0.6-1.3); GLUCOSE 99 mg/dL (74-106); SODIUM SERUM 138 mmol/L (136-145); UREA NITROGEN, BLOOD 15 mg/dL (7-18)
[2020-07-10 17:15] LABS: ALANINE AMINOTRANSFERASE 18 U/L (12-78); ALBUMIN 4.6 g/dL (3.4-5.0); ALCOHOL, BLOOD < 3 mg/dL (0-0); ALKALINE PHOSPHATASE 58 U/L (46-116); ASPARTATE AMINOTRANSFERASE 26 U/L (15-37); BILIRUBIN,DIRECT 0.2 mg/dL (0.0-0.2); TOTAL PROTEIN, SERUM 8.6 g/dL (6.4-8.2)
[2020-07-10 17:20] LABS: ACETAMINOPHEN < 2 ug/ml (10-30)
[2020-07-10] MEDS ORDERED: HALOPERIDOL 1 MG TABLET PO ONE (20:00)
[2020-07-10] MEDS ORDERED: LORAZEPAM 1 MG TABLET PO ONE (20:00)
[2020-07-10] MEDS ORDERED: HALOPERIDOL 5 MG TABLET ONE (20:31)
[2020-07-10] MEDS ORDERED: LORAZEPAM 1 MG TABLET ONE (20:31)
--- NOTE | 2020-07-10 20:34 | NUR ---
assumed pt care. pty medicated as ordered. pt is in bed aaox4. not in resp distress.
[2020-07-10 20:56] LABS: BILIRUBIN,URINE NEGATIVE (NEGATIVE); COLOR,URINE YELLOW (YELLOW); LEUKOCYTE ESTERASE ,URINE NEGATIVE (NEGATIVE); NITRITE, URINE NEGATIVE (NEGATIVE); PH,URINE 6.5 (5.0-8.0); PROTEIN,URINE NEGATIVE (NEGATIVE); UGLUCOSE NEGATIVE (NEGATIVE); UROBILINOGEN,URINE 0.2 EU/dL (0.2)
--- NOTE | 2020-07-10 22:06 | NUR ---
clinical and facesheet faxedt o [facility] intake for voluntary psych admission.
--- NOTE | 2020-07-10 23:47 | NUR ---
CALLED ART program research specialist Re: PATIENT. states to try and call [facility]
--- NOTE | 2020-07-10 23:48 | NUR ---
called [facility], spoke to neftaly, [facility] not take [facility]. try [facility]
--- NOTE | 2020-07-10 23:49 | NUR ---
[facility]: [phone] FAX
--- NOTE | 2020-07-11 00:15 | NUR ---
SPOKE TO CHAD MURRY AT [facility]. REC'D PACKET RE: PATIENT, INSURANCE IS [facility]--- THEY ARE UNABLE TO TAKE PATIENTS WITH HMO AT THIS TIME.
--- NOTE | 2020-07-11 00:16 | NUR ---
SPOKE TO ART UPDATED RE: PATIENT, HE WILL COME AND SEE PATIENT
--- NOTE | 2020-07-11 00:41 | NUR ---
JON KISERW AT BEDSIDE TO LUAN MAYS.
[2020-07-11] MEDS ORDERED: ACETAMINOPHEN ES 500 MG TABLET ONE (02:35)
[2020-07-11] MEDS ORDERED: ACETAMINOPHEN ES 500 MG TABLET PO ONE (03:00)
--- NOTE | 2020-07-11 03:16 | NUR ---
PT ASLEEP, NO ACUTE DISTRESS NOTED, RESP EVEN AND UNLABORED. CALL LIGHT WIHTIN REACH. WILL CONTINUE TO MONITOR PT. 1:1 SITTER REMAINS AT BEDSIDE.
--- NOTE | 2020-07-11 05:25 | NUR ---
PT RESTING COMFORTABLY IN BED. VITAL SIGNS STABLE. NO ACUTE DISTRESS NOTED AT THIS TIME. SITTER STILL AT BEDSIDE.
[2020-07-11] MEDS ORDERED: HALOPERIDOL 5 MG TABLET ONE (08:50)
[2020-07-11] MEDS ORDERED: HALOPERIDOL 1 MG TABLET PO ONE (09:00)
--- NOTE | 2020-07-11 09:02 | NUR ---
PATIENT A/OX4, BREATHING EVEN AND UNLABORED, NO SOB NOTED, STILL C/O HEARING VOICES REQUESTED FOR HALDOL. DR. JONES MADE AWARE. PT STS HE'S NOT SUICIDAL AT THIS TIME. NEEDS ATTENDED. SITTER AT BEDSIDE FOR SAFETY.
[2020-07-11 11:59] VITALS: BP 134/77
--- NOTE | 2020-07-11 12:00 | NUR ---
[facility] called speaking with nan regarding pt will let us know.
--- NOTE | 2020-07-11 13:00 | NUR ---
Social Service Consult: director of volunteer services consult requested for suicidal ideations. Patient is a 49-year-old, male. SW met with the patient at his hospital bed in the emergency department. Patient is alert and oriented x4. Patient is ambulatory. Patient was admitted to the emergency department on 07/10/2020 for suicidal ideations. Per crisis team report, patient was threatening to jump off a bridge and is ambivalent regarding suicidal ideations. SW asked the patient if he was experiencing any current suicidal or homicidal ideations and patient denied. Patient stated that he is schizophrenic and is currently experiencing auditory hallucinations. Per chart, patient has a history of bipolar disorder. SW discussed psychiatric treatment options with the patient and mentioned [facility] ([address] [place] [address]; ). Patient told this SW, I dont know where I want to go and want to speak to the doctor first. SW asked the patient about his current living arrangement. Patient stated that he currently lives at random places and was unable to provide this SW with any information on a residence. Per patients ABRAM Whitman patient is currently homeless. Patient stated that the information in the chart is incorrect and provided a current phone number ([phone]). SW offered homeless resources to the patient and asked if he is familiar with the resources. Patient stated that he is familiar with the resources and declined the resources at this time. Patient signed the homeless waiver and SW filed the waiver in the patients chart. Patient inquired about addiction resources. SW discussed addiction resources with the patient. SW informed ED physician Dr. Pedroza that patient wants to speak with the physician. SW notified ABRAM Whitman that the substance abuse resource was placed in the patients chart and should be provided to the patient at discharge. PLAN: [facility] to discuss case with ED physician and RN.
--- NOTE | 2020-07-11 13:00 | NUR ---
Spoke to [facility] intake, she needs a voluntary admission form to [phone] fax att [facility]. Faxed signed form to [phone].
--- NOTE | 2020-07-11 13:05 | NUR ---
Display Carver: ABRAM Jena contacted this SW and informed this SW that patient has agreed to a voluntary discharge to a psychiatric facility. SW once again discussed [facility] with the patient and patient agreed to this discharge plan. JAYLEN faxed clinicals to [facility] (fax: [phone]). JAYLEN will follow up with [place] and nursing staff to ensure a safe discharge plan.
--- NOTE | 2020-07-11 13:17 | NUR ---
Pt accepted to [facility] PT will go to room 122-B Accepting MD is Dr. Peck Number for report is [phone]
--- NOTE | 2020-07-11 13:39 | NUR ---
CALLED [id number] WILL CALL US WITH ETA PER BETH REF#[phone]
--- NOTE | 2020-07-11 14:02 | NUR ---
[id number] CALLED BACK ETA 30 MINS PER [facility]
--- NOTE | 2020-07-11 14:32 | NUR ---
Report Given to [facility] for continuity of care
== END 2020-07-11 16:44 ==
LOC: ER 15:12
DX: F15.151 Other stimulant abuse with stimulant-induced psychotic disorder with hallucinations (principal); R45.851 Suicidal ideations; Z59.0 Homelessness; Z20.822 Contact with and (suspected) exposure to COVID-19; R03.0 Elevated blood-pressure reading, without diagnosis of hypertension; Z91.5 Personal history of self-harm; R94.31 Abnormal electrocardiogram [ECG] [EKG]
CPT/HCPCS: 36415; 71100; 80048; 80076; 80299; 80307; 80320; 81003; 83735; 84484; 85025; 87426; 93005; 99285; C9803; G0480

== ENCOUNTER 2022-08-01 19:34 | Emergency (ER) | payer OTHER ==
[~2022-08-01] VITALS: Ht 195.6 cm; Wt 88.5 kg
[2022-08-01] MEDS ORDERED: KETOROLAC TROMETHAMINE INJ 30 MG/ML VIAL ONE (20:32)
[2022-08-01] MEDS: KETOROLAC TROMETHAMINE INJ 30 MG/ML VIAL IM ONE (20:55)
[2022-08-01] MEDS ORDERED: HALO10TA13 PO (21:19)
[2022-08-01] MEDS ORDERED: ARIP5TAB10 PO (21:19)
[2022-08-01] MEDS ORDERED: ARIPIPRAZOLE 2 MG TABLET ONE (21:26)
[2022-08-01] MEDS ORDERED: HALOPERIDOL 5 MG TABLET ONE (21:26)
[2022-08-01] MEDS: ARIPIPRAZOLE 2 MG TABLET PO ONE (21:35)
[2022-08-01] MEDS: HALOPERIDOL 1 MG TABLET PO ONE (21:35)
--- NOTE | 2022-08-01 22:23 | NUR ---
PT STATES HE IS HEARING VOICE FOR HIM TO HARM HIMSELF, DENIES SI. WANTS TO GO TO A PSYCH FACILITY FOR TREATMENT. BREATHING IS EVEN AND UNLABORED ON ROOM AIR NO S/S OF DISTRESS
[2022-08-01 22:31] LABS: BASOPHILS # (AUTO) 0.1 K/uL (0.0-0.2); BASOPHILS % (AUTO) 1.3 % (0.0-2.0); EOSINOPHILS % (AUTO) 0.9 % (0.0-6.0); HEMATOCRIT 42 % (39-51); LYMPHOCYTES # (AUTO) 1.9 K/uL (0.8-4.8); LYMPHOCYTES % (AUTO) 38.3 % (20.0-44.0); MEAN CORPUSCULAR HGB CONC 33 g/dl (31.0-36.0); MEAN CORPUSCULAR VOLUME 94 fL (80-96); MONOCYTES # (AUTO) 0.5 K/uL (0.1-1.30); MONOCYTES % (AUTO) 9.7 % (2.0-12.0); NEUTROPHILS # (AUTO) 2.5 K/uL (1.8-8.9); NEUTROPHILS % (AUTO) 49.8 % (43.0-81.0); PLATELET COUNT (AUTO) 286 K/uL (150-450); RED BLOOD CELL COUNT(AUTO) 4.52 MIL/uL (4.5-6.0)
[2022-08-01 22:47] LABS: CALCIUM, SERUM 9.6 mg/dL (8.5-10.1); CARBON DIOXIDE 27 mmol/L (21-32); CHLORIDE 103 mmol/L (98-107); CREATININE 0.9 mg/dL (0.6-1.3); GLUCOSE 100 mg/dL (74-106); POTASSIUM 3.9 mmol/L (3.5-5.1); SODIUM SERUM 139 mmol/L (136-145); UREA NITROGEN, BLOOD 10 mg/dL (7-18)
[2022-08-01 22:49] LABS: BILIRUBIN,URINE NEGATIVE (NEGATIVE); COLOR,URINE YELLOW (YELLOW); LEUKOCYTE ESTERASE ,URINE NEGATIVE (NEGATIVE); NITRITE, URINE NEGATIVE (NEGATIVE); PROTEIN,URINE NEGATIVE (NEGATIVE); UGLUCOSE NEGATIVE (NEGATIVE); UROBILINOGEN,URINE 0.2 EU/dL (0.2)
--- NOTE | 2022-08-01 23:00 | NUR ---
REPORT RECEIVED FROM ABRAM SEAMAN
[2022-08-01 23:01] LABS: ACETAMINOPHEN < 10 ug/ml (10-30); ALANINE AMINOTRANSFERASE 36 U/L (12-78); ALBUMIN 4.4 g/dL (3.4-5.0); ALCOHOL, BLOOD < 3 mg/dL (0-0); ALKALINE PHOSPHATASE 56 U/L (46-116); ASPARTATE AMINOTRANSFERASE 47 U/L (15-37); BILIRUBIN,DIRECT 0.2 mg/dL (0.0-0.2); BILIRUBIN,TOTAL 0.6 mg/dL (0.2-1.0); TOTAL PROTEIN, SERUM 7.9 g/dL (6.4-8.2)
[2022-08-01] MEDS ORDERED: ACETAMINOPHEN 325 MG TABLET ONE ×2 (23:31→23:36)
[2022-08-01] MEDS: ACETAMINOPHEN 325 MG TABLET PO ONE (23:37)
--- NOTE | 2022-08-02 02:28 | NUR ---
Charley mejia in ED - 08/02/22 at 0357 by DEEPTI Patient discharged to home in stable condition. Written and verbal after care instructions given. Patient verbalizes understanding of instruction. PT no longer SI
--- NOTE | 2022-08-02 04:22 | NUR ---
FACESHEET AND CLINICALS FAXED TO [facility].
[2022-08-02] MEDS ORDERED: HALOPERIDOL LACTATE INJ 5 MG/ML VIAL ONE (04:29)
[2022-08-02] MEDS: HALOPERIDOL LACTATE INJ 5 MG/ML VIAL IM ONE (05:13)
[2022-08-02] MEDS ORDERED: diphenhydrAMINE HCL 50 MG/ML VIAL ONE (05:19)
[2022-08-02] MEDS ORDERED: LORAZEPAM INJ 2 MG/ML VIAL ONE (05:19)
--- NOTE | 2022-08-02 05:21 | NUR ---
PT BECOMING INCREASINGLY AGITATED, WORSENING HALLUCINATIONS. PT MEDICATED ORDERED BY DR ROPER.
[2022-08-02] MEDS: LORAZEPAM INJ 2 MG/ML VIAL IM ONE (05:24)
[2022-08-02] MEDS: diphenhydrAMINE HCL 50 MG/ML VIAL IM ONE (05:24)
--- NOTE | 2022-08-02 08:30 | NUR ---
pt provided w/ breakfast tray. calm, cooperative w/ staff. will continue to monitor.
--- NOTE | 2022-08-02 14:49 | NUR ---
PATIENT LEFT HOSPITAL PRIOR TO BEING DISCHARGED BY MD. PATIENT A/O X 3, AMBULATORY, IN STABLE CONDITION. PATIENT MADE AWARE OF RISKS OF LEAVING HOSPITAL BEFORE DISCHARGE X 3, PATIENT AGAIN INSISTED ON LEAVING HOSPITAL IMMEDIATELY. PATIENT LEFT HOSPITAL VIA AMULATION WITH ALL BELONGINGS. Addendum: 08/02/22 at 1453 by ALFREDO PATIENT STATED HE WAS NO LONGER SUICIDAL AND DID NOT REQUIRE ADMISSION TO PSYCH FACILITY OR FURTHER MONITORING IN HOSPITAL.
[2022-08-02 14:54] VITALS: BP 151/77
== END 2022-08-02 14:55 | disposition home or self-care (01) ==
LOC: ER 19:36
DX: R45.851 Suicidal ideations (principal); M25.562 Pain in left knee; F20.9 Schizophrenia, unspecified; F32.A Depression, unspecified; F17.200 Nicotine dependence, unspecified, uncomplicated; Z20.822 Contact with and (suspected) exposure to COVID-19; Z60.2 Problems related to living alone
CPT/HCPCS: 99285; 73564; 85025; 80048; 80076; 81003; 36415; 87426; 80143; 80320; 80307; 96372 ×2; C9803; J2060; J1200; J1630; G0480; J1885